=== PATIENT | male | born 1995 | race Caucasian/White ===

== ENCOUNTER 2016-08-20 00:59 | Inpatient (IN) | payer MEDICAID, OTHER ==
[~2016-08-20] VITALS: Ht 165.1 cm; Wt 81.4 kg
[2016-08-20] MEDS ORDERED: NS 1,000 ML IV ONE ×3 (01:45→06:00)
[2016-08-20] MEDS ORDERED: LORazepam 2 MG/ML VIAL (J2060) As Ordered ONE (02:10)
[2016-08-20] MEDS ORDERED: LORazepam 2 MG/ML VIAL (J2060) IM STA (02:19)
[2016-08-20] MEDS ORDERED: LORazepam 2 MG/ML VIAL (J2060) IV STA ×3 (02:19→03:51)
[2016-08-20] MEDS ORDERED: levETIRAcetam INJection 750 MG in D5W 100 ML IV ONE (02:30)
[2016-08-20 02:48] LABS: VENOUS BASE EXCESS -11.9 (-2.0-2.0); VENOUS O2 SATURATION 98.4 % (60.0-80.0); VENOUS PARTIAL PRESSURE CO2 32.2 mmHg (38.0-50.0); VENOUS PARTIAL PRESSURE O2 132.7 mmHg (30.0-50.0); VENOUS STANDARD HCO3 15.5 MEQ/L; VENOUS TOTAL CO2 14.9 MEQ/L (24.0-28.0)
[2016-08-20 02:58] LABS: BASO % 0.1 % (0.0-1.0); EOS % 0.3 % (0.0-3.0); LARGE UNSTAINED CELL # 0.1 K/mm3 (0.0-0.4); LARGE UNSTAINED CELL % 0.5 % (0.0-4.0); LYMPH # 0.8 K/mm3 (1.5-6.5); MEAN CORPUSCULAR HEMOGLOBIN 30.9 pg (27.0-33.0); MEAN CORPUSCULAR VOLUME 93.5 fl (80.0-96.0); MONO # 0.6 K/mm3 (0.0-0.8); MONO % 3.7 % (0.0-5.0); NEUTROPHILS # 13.9 K/mm3 (1.8-7.7); NEUTROPHILS % 90.5 % (36.0-66.0); PLATELET COUNT, AUTOMATED 250 k/mm3 (150-450); RED CELL DISTRIBUTION WIDTH 12.8 % (11.5-14.5); WHITE BLOOD COUNT 15.3 K/mm3 (4.0-10.0)
[2016-08-20 03:25] LABS: ABG BASE EXCESS -4.6 (-2.0-2.0); ABG HCO3 20.5 MEQ/L (22.0-26.0); ABG PARTIAL PRESSURE CO2 37.9 mmHg (35.0-45.0); ABG STANDARD HCO3 20.3 MEQ/L (22.0-26.0); ABG TOTAL CO2 21.6 MEQ/L (22.0-29.0)
[2016-08-20 03:26] LABS: OSMOLALITY SERUM 285 MOSM/KG (275-295)
[2016-08-20 03:28] LABS: ABG PARTIAL PRESSURE O2 45.5 mmHg (75.0-100.0)
[2016-08-20 03:30] LABS: ALBUMIN 4.3 GM/DL (3.2-5.2); ALBUMIN/GLOBULIN RATIO 1.23 (1.00-1.93); ALKALINE PHOSPHATASE 63 U/L (45-117); ALT/SGPT 21 U/L (12-78); ANION GAP 16 MEQ/L (8-16); AST/SGOT 28 U/L (15-37); BILIRUBIN,DIRECT 0.3 MG/DL (0.0-0.2); BILIRUBIN,TOTAL 1.2 MG/DL (0.2-1.0); BLOOD UREA NITROGEN 12 MG/DL (7-18); CALCIUM LEVEL 8.3 MG/DL (8.5-10.1); CARBON DIOXIDE LEVEL 19 MEQ/L (21-32); CHLORIDE LEVEL 103 MEQ/L (98-107); CREATININE FOR GFR 1.17 MG/DL (0.70-1.30); GLOMERULAR FILTRATION RATE > 60.0 (>60); GLUCOSE, FASTING 122 MG/DL (70-105); POTASSIUM SERUM 3.9 MEQ/L (3.5-5.1); SODIUM LEVEL 138 MEQ/L (136-145); TOTAL PROTEIN 7.8 GM/DL (6.4-8.2)
[2016-08-20] MEDS ORDERED: diphenhydrAMINE INJ 50MG/ML VIAL (J1200) IV STA (03:51)
[2016-08-20] MEDS ORDERED: diphenhydrAMINE INJ 50MG/ML VIAL (J1200) As Ordered ONE (03:53)
[2016-08-20] MEDS ORDERED: HALOPERIDOL 5 MG/ML VIAL (J1630) As Ordered ONE (03:53)
[2016-08-20 04:00] LABS: METHADONE URINE NEGATIVE (NEGATIVE)
[2016-08-20] MEDS ORDERED: HALOPERIDOL 5 MG/ML VIAL (J1630) IM ONE (04:00)
--- NOTE | 2016-08-20 04:20 | REPUSA ---
CLINICAL HISTORY: Altered mental status. TECHNIQUE: Multiple axial brain CT scan sections were obtained from base to vertex without contrast a dministration. COMMENTS: The study shows normal configuration of sella turcica. There are no intra or extra-axial collections. There is no mass effect or midline shift. There is no evidence of hematoma formation. No hydrocephal us is present. No abnormal calcifications are noted. No significant abnormalities are seen either in the posterior fossa or supratentorial compartment. The sinuses and mastoid air cells are patent. IMPRESSION: No evidence of acute intracranial pathology. Thank you for your kind referral of this patient.
[2016-08-20] MEDS ORDERED: NS 1,000 ML IV SCH (04:29)
[2016-08-20] MEDS ORDERED: KETAMINE HCL 200 MG/20 ML VIAL IV ONE (04:30)
[2016-08-20] MEDS ORDERED: PROPOFOL 200 MG/20 ML VIAL IV PRN (04:30)
[2016-08-20 05:29] LABS: CSF DILUENT LOT # 6165
[2016-08-20 05:32] LABS: GLUCOSE CSF 85 MG/DL (40-75)
[2016-08-20 05:40] LABS: RBC CSF AUTO 1 /mm3 (0-0); WBC CSF AUTO 3 /mm3 (0-10)
[2016-08-20 05:42] LABS: RBC CSF AUTO 0 /mm3 (0-0); WBC CSF AUTO 2 /mm3 (0-10)
[2016-08-20 05:44] LABS: APPEARANCE, CSF CLEAR (CLEAR); COLOR, CSF COLORLESS (COLORLESS); CSF DIFF IF INDICATED? NO (NO); CSF TUBE# CELL CNT TUBE 1; CSF TUBE# CELL CNT TUBE 4
[2016-08-20] MEDS ORDERED: LORazepam 2 MG/ML VIAL (J2060) IV PRN (07:00)
--- NOTE | 2016-08-20 07:32 | HPE ---
DATE OF ADMISSION: 08/20/2016 REASON FOR ADMISSION: Seizures. PRIMARY CARE PROVIDER: None. HISTORY OF PRESENT ILLNESS: The patient is a 20-year-old male with a history of drug abuse, presented to the emergency room after he had a seizure; it was witnessed by his ex-girlfriend. The patient is from [place]. He today called his ex-girlfriend, who is the mother of his child, stating he would like to spend more time with his child. She went to get him and during the car ride he had a seizure. He was postictal for a few minutes. She drove him into the emergency room. In the emergency department (ED), he had another witnessed seizure. Most of the history was obtained from the girlfriend and later on family that showed up. Per family, they stated the patient has a long history of drug use, mainly synthetic marijuana but has experimented with different types of drugs. He was in drug rehabilitation in the past a few years ago, has not been seen by any psychiatrist or psychologist. He has no epileptic seizure history. However, he did have seizures in the past due to a drug overdose, per his mom and grandpa. At this time, the patient is postictal, unable to give any history. PAST MEDICAL HISTORY: Per his mom, the patient only has a history of heart murmur. PAST SURGICAL HISTORY: Tonsillectomy, adenoidectomy. ALLERGIES TO MEDICATIONS: None. SOCIAL HISTORY: The patient smokes synthetic marijuana, may have experimented with other drugs including bath salts. He had three episodes of overdoses in the past. FAMILY HISTORY: Noncontributory. MEDICATIONS: No prescribed medications. REVIEW OF SYSTEMS: Unable to obtain at this time due to the patient's altered mentation. PHYSICAL FINDINGS: Vital Signs: On admission, temperature 96.3, pulse 92, respiratory rate 20, blood pressure is 171/93, pulse oximetry 97% on room air. HEENT: Pupils equal, round, reactive. Neck: Supple. No jugular venous distention (JVD). Lungs: Clear to auscultation bilaterally. Cardiac: A 2/6 murmur. Regular rate and rhythm. Extremities: No clubbing, cyanosis or edema. Abdomen: Soft, positive bowel sounds. Neurologic: Unable to obtain due to the patient's current mentation. LABORATORY FINDINGS. WBC 15.3, hemoglobin 16.1, hematocrit 48.8, platelet count 250. Sodium 138, potassium 3.9, chloride 103, BUN 12, creatinine 1.17, fasting glucose 122, lactic acid 9.4, CK was 494, troponin less than 0.02, TSH 2.04. Toxicology screen was positive for cannabinoids. Lumbar puncture (LP) was done in the emergency room which showed 1+ RBCs and 85 of glucose, [address] was also done in the emergency room, which was negative. ASSESSMENT AND PLAN: 1. Seizure disorder, likely secondary to drugs. The patient has a history of drug abuse in the past. We will order extended drug screen. We will keep the patient on seizure precautions, neurologic checks every 4 hours. The patient was loaded with Keppra in the emergency room. He also received two doses of Haldol 5 mg, four doses of Ativan 2 mg, Benadryl and a loading dose of Keppra. We will order an electroencephalogram (EEG), prolactin level. 2. Lactic acidosis, likely secondary to breakdown due to seizures. It will be repeated in 4 hours. 3. Elevated CK secondary to seizures. 4. History of drug abuse. Unknown if the patient has any history of suicidal ideation. 5. Deep vein thrombosis (DVT) prophylaxis. Will use Lovenox subcutaneously daily.
[2016-08-20] MEDS: NS 1,000 ML IV SCH ×3 (07:58→22:53)
[2016-08-20] MEDS: ENOXAPARIN 40 MG/0.4 ML SYRINGE (J1650) SC SCH (09:39)
[2016-08-20 10:00] VITALS: BP 113/59
[2016-08-20] MEDS ORDERED: ACETAMINOPHEN 650 MG SUPP PR ONE (11:15)
[2016-08-20 12:00] VITALS: BP 125/60
[2016-08-20 12:45] VITALS: BP 91/54
--- NOTE | 2016-08-20 12:47 | IPNPDOC ---
Date Seen The patient was seen on 08/20/16. Progress Note SUBJECTIVE: Mr. Thompson is a 20-year-old male was evaluated bedside this morning. He is currently in the emergency department holding area. His grandfather is present in the room upon evaluation. Patient is unresponsive secondary to sedation. Grandfather states that he raised patient from the age of 7-20 when patient stated that he wanted to be free. Obtained custody of patient secondary to patient's mother having history of drug abuse. Grandfather states that patient has had consistent problem with drugs. Furthermore, since the patient has history of seizures and that patient experienced seizures before being admitted to the hospital. Patient himself is unable to provide any history secondary to sedation. OBJECTIVE PHYSICAL EXAMINATION: VITAL SIGNS: Please see below. GENERAL: male laying in hospital bed upon evaluation, sedated, appears well-nourished and well-developed, no apparent distress HEENT: Atraumatic, normocephalic, short red quiñonez, limited oral evaluation appears pink and moist, pupils appear pinpoint, anicteric, without conjunctival erythema, abrasion noted along mandibular joint on the right, abrasion noted along the lateral portion of right eyelid CARDIOVASCULAR: Regular rate and rhythm, normal S1 and S2, no murmur, rub, click RESPIRATORY: Coarse breath sounds, clear to auscultation bilaterally, adequate inspiratory and excoriated with excursion, no wheeze, rhonchi, crackles ABDOMINAL: Soft, nontender, nondistended, bowel sounds appreciated EXTREMITIES: Without edema, multiple ecchymoses noted on upper and lower extremities, peripheral pulses appreciated bilaterally in upper and lower extremities, equal, symmetrical, +2/4 NEUROLOGICAL: Sedated PSYCHOLOGICAL: Sedated LABORATORY DATA: Please see below. MICROBIOLOGY: Please see below. IMAGING: Head CT without contrast IMPRESSION: No evidence of acute intracranial pathology. DVT prophylaxis ordered?: Lovenox 40 mg subcutaneous daily ASSESSMENT AND PLAN: Mr. Thompson is a 20-year-old male who presents with altered mental status secondary to polysubstance abuse with concomitant possible seizure disorder. PROBLEMS: 1. Altered mental status: Patient is currently sedated. Lumbar puncture was negative. Toxicology report was positive for cannabinoids. Head CT without contrast was negative. MRI of the brain without contrast is pending. Prolactin is pending. Possible etiologies include infection, structural component, metabolic. Evaluating infectious causes with blood culture, urinalysis, and lumbar puncture. Structural component evaluated with CT and MRI of the brain. Metabolic aggravated this toxicology screen. We'll also be obtaining an EEG. 2. Fever: Patient fever 100.8. Given Tylenol 650 mg suppository. Obtaining blood cultures and urinalysis. 3. Leukocytosis: WBC 15.3, neutrophil dominant. Question acute phase reactant from seizure versus infectious etiology. Blood cultures and urinalysis are pending. 4. Acute kidney injury: Patient's BUN and creatinine 12 and 1.17, respectively. Obtaining urinalysis. Urine osmolality was within normal range. Could be secondary to underlying dehydration. Receiving intravenous fluids 150 mLs per hour. 5. Elevated creatine phosphokinase: CPK was 949. CK-MB 6.2. Likely secondary to seizure, could be secondary to dehydration. 6. Lactic acidosis: Patient's initial lactic acid was 9.4. Likely secondary to seizure. Reflexive four hour lactic acid was 1. DISPOSITION: Tylenol for fever. Currently investigating reasons for leukocytosis and fever with blood cultures and urinalysis. Acute kidney injury likely secondary to dehydration. Elevated CPK likely related to some muscle injury secondary to polysubstance abuse and seizure. VS, I&O, 24H, Fishbone Vital Signs/I&O Vital Signs Date Time Temp Pulse Resp B/P (MAP) Pulse Ox O2 Delivery O2 Flow Rate FiO2 08/20/16 10:00 100.8 08/20/16 10:00 90 16 113/59 (77) 96 Room Air 08/20/16 04:46 2.0 I&O- Last 24 Hours up to 6 AM 08/20/16 06:00 Intake Total 1000 ml Balance 1000 ml Laboratory Data 24H LABS Laboratory Tests 2 08/20/16 02:40: Blood Gas Bicarbonate Standard 15.5, Venous Blood pH 7.252L, Venous Blood Partial Pressure CO2 32.2L, Venous Blood Partial Pressure O2 132.7H, Venous Blood Total Carbon Dioxide 14.9L, Venous Blood HCO3 13.9L, Venous Blood Oxygen Saturation 98.4H, Venous Blood Base Excess -11.9L, Lactic Acid Level 9.4*H 08/20/16 02:50: White Blood Count 15.3H, Red Blood Count 5.22, Hemoglobin 16.1, Hematocrit 48.8 , Mean Corpuscular Volume 93.5, Mean Corpuscular Hemoglobin 30.9, Mean Corpuscular Hemoglobin Concent 33.0, Red Cell Distribution Width 12.8, Platelet Count 250, Neutrophils (%) (Auto) 90.5H, Lymphocytes (%) (Auto) 5.0L, Monocytes (%) (Auto) 3.7, Eosinophils (%) (Auto) 0.3, Basophils (%) (Auto) 0.1, Neutrophils # (Auto) 13.9H, Lymphocytes # (Auto) 0.8L, Monocytes # (Auto) 0.6, Eosinophils # (Auto) 0.0, Basophils # (Auto) 0.0, Large Unclassified Cells % 0.5 , Large Unclassified Cells # 0.1, Anion Gap 16, Glomerular Filtration Rate > 60.0, Osmolality 285, Calcium Level 8.3L, Aspartate Amino Transf (AST/SGOT) 28, Alanine Aminotransferase (ALT/SGPT) 21, Alkaline Phosphatase 63, Total Bilirubin 1.2H, Direct Bilirubin 0.3H, Total Creatine Kinase 494H, Creatine Kinase MB 5.0H, Creatine Kinase MB Relative Index 1.01, Troponin I < 0.02, Total Protein 7.8, Albumin 4.3, Albumin/Globulin Ratio 1.23, Thyroid Stimulating Hormone (TSH) 2.040, Ethyl Alcohol Level < 0.003 08/20/16 03:09: Bedside Glucose (Misc Panel) 127H 08/20/16 03:19: Blood Gas Bicarbonate Standard 20.3L, Arterial Blood pH 7.350, Arterial Blood Partial Pressure CO2 37.9, Arterial Blood Partial Pressure O2 45.5*L, Arterial Blood Total CO2 21.6L, Arterial Blood HCO3 20.5L, Arterial Blood Base Excess - 4.6L, Arterial Blood Oxygen Saturation 80.4L 08/20/16 03:32: Urine Amphetamines Screen NEGATIVE, Urine Benzodiazepines Screen NEGATIVE, Urine Opiates Screen NEGATIVE, Urine Methadone Screen NEGATIVE, Urine Barbiturates Screen NEGATIVE, Urine Phencyclidine Screen NEGATIVE, Urine Cocaine Metabolite Screen NEGATIVE, Urine Cannabinoids Screen POSITIVEH 08/20/16 05:11: CSF Appearance CLEAR, CSF Color COLORLESS, CSF WBC 2, CSF RBC 0, CSF Glucose ( Tube 1) TUBE 1, CSF Total Protein (Tube 1) TUBE 1, CSF Cell Count Tube # TUBE 4 , CSF Glucose 85H, CSF Total Protein 32.9 08/20/16 07:23: Lactic Acid Followup at 4 Hours 1.0, Total Creatine Kinase 949#H, Creatine Kinase MB 6.2H, Creatine Kinase MB Relative Index 0.65, Troponin I 0.09# 08/20/16 11:59: CBC/BMP Laboratory Tests 08/20/16 02:50 Red Blood Count 5.22, Mean Corpuscular Volume 93.5, Mean Corpuscular Hemoglobin 30.9, Mean Corpuscular Hemoglobin Concent 33.0, Red Cell Distribution Width 12.8 , Neutrophils (%) (Auto) 90.5 H, Lymphocytes (%) (Auto) 5.0 L, Monocytes (%) ( Auto) 3.7, Eosinophils (%) (Auto) 0.3, Basophils (%) (Auto) 0.1, Neutrophils # ( Auto) 13.9 H, Lymphocytes # (Auto) 0.8 L, Monocytes # (Auto) 0.6, Eosinophils # (Auto) 0.0, Basophils # (Auto) 0.0 Microbiology Microbiology 08/20/16 Blood Culture, Received Pending 08/20/16 Blood Culture, Received Pending 08/20/16 Gram Stain - Final, Resulted 08/20/16 CSF Culture, Resulted Pending CARRIE BERMAN August 20, 2016 12:47
[2016-08-20] MEDS: levETIRAcetam INJection 1,000 MG in D5W 100 ML IV SCH (15:43)
[2016-08-20 16:00] VITALS: BP 141/63
[2016-08-20 20:00] VITALS: BP 125/68
[2016-08-20 23:49] VITALS: BP 137/67
[2016-08-21 04:00] VITALS: BP 145/65
[2016-08-21] MEDS: levETIRAcetam INJection 1,000 MG in D5W 100 ML IV SCH ×2 (04:24→16:00)
[2016-08-21] MEDS: NS 1,000 ML IV SCH ×2 (04:24→11:29)
[2016-08-21 05:53] LABS: MEAN CORPUSCULAR HEMOGLOBIN 31.2 pg (27.0-33.0); MEAN CORPUSCULAR HGB CONC 34.4 g/dl (32.0-36.5); MEAN CORPUSCULAR VOLUME 90.7 fl (80.0-96.0); RED CELL DISTRIBUTION WIDTH 12.8 % (11.5-14.5)
[2016-08-21 06:37] LABS: ALBUMIN 3.3 GM/DL (3.2-5.2); ALBUMIN/GLOBULIN RATIO 1.32 (1.00-1.93); ALKALINE PHOSPHATASE 55 U/L (45-117); ALT/SGPT 27 U/L (12-78); ANION GAP 13 MEQ/L (8-16); AST/SGOT 74 U/L (15-37); BILIRUBIN,TOTAL 2.6 MG/DL (0.2-1.0); BLOOD UREA NITROGEN 10 MG/DL (7-18); CALCIUM LEVEL 7.5 MG/DL (8.5-10.1); CARBON DIOXIDE LEVEL 19 MEQ/L (21-32); CHLORIDE LEVEL 108 MEQ/L (98-107); CREATININE FOR GFR 0.81 MG/DL (0.70-1.30); GLOMERULAR FILTRATION RATE > 60.0 (>60); GLUCOSE, FASTING 71 MG/DL (70-105); POTASSIUM SERUM 3.5 MEQ/L (3.5-5.1); SODIUM LEVEL 140 MEQ/L (136-145); TOTAL PROTEIN 5.8 GM/DL (6.4-8.2)
[2016-08-21 08:00] VITALS: BP 107/55
[2016-08-21] MEDS ORDERED: ACETAMINOPHEN TAB 650MG DOSE (2X325MG) PO PRN (08:00)
[2016-08-21] MEDS: ENOXAPARIN 40 MG/0.4 ML SYRINGE (J1650) SC SCH (08:03)
[2016-08-21 12:00] VITALS: BP 133/79
--- NOTE | 2016-08-21 14:01 | IPNPDOC ---
Subjective Date Seen The patient was seen on 08/21/16. Subjective Chief Complaint/HPI The patient is a 20-year-old male admitted with a reason for visit of Seizure. General: Denies: Chills, Night Sweats Constitutional: Denies: Chills, Fever Eyes: Denies: Pain, Vision change ENT: Denies: Head Aches, Ear Pain Skin: Denies: Rash, Lesions Pulmonary: Denies: Dyspnea, Cough Cardiovascular: Denies: Chest Pain, Palpitations Gastrointestinal: Denies: Nausea, Vomiting Genitourinary: Denies: Dysuria, Frequency Hematologic: Denies: Bruising, Bleeding Excessively Musculoskeletal: Denies: Neck Pain, Back Pain Objective Physical Examination General Exam: Positive: Alert, Cooperative, No Acute Distress ENT Exam: Positive: Atraumatic, Mucous membr. moist/pink Neck Exam: Negative: JVD Chest Exam: Positive: Clear to auscultation, Normal air movement Heart Exam: Positive: Rate Normal, Normal S1, Normal S2 Telemetry: Positive: Sinus Abdomen Exam: Positive: Soft, Negative: Tenderness Extremity Exam: Negative: Tenderness, Swelling Neuro Exam: Positive: Strength at 5/5 X4 ext, Cranial Nerves 3-12 NL Psych Exam: Positive: Oriented x 3 Assessment /Plan Plan/VTE VTE Prophylaxis Ordered?: Yes Plan Episode of seizure(s) CT scan of the head with no acute findings MRI of the brain pending Lumbar puncture done in the ER with no suggestion of underlying infectious etiology Blood cultures unrevealing Patient states that he has a history of 1 episode of seizure in the past about 2 years ago, and this happened after he took a "Tess" recreational drug At this time, the patient denies taking any illicit drugs prior to his event Urine toxicology screen positive for cannabinoids EEG pending Continue on Keppra 1000 mg twice a day Neurology consulted Rhabdomyolysis CPK noted to be ~4K this AM Likely 2/2 Seizure event IVF Hydration Will continue to monitor CPK Lactic acidosis likely 2/2 Above, resolved DVT Prophylaxis-Lovenox Dispo: Will follow up on neuro imaging, EEG studies, and Neuro input. Anticipate D/C in 24-48 hrs. Update 5:45pm--called by the bedside nurse as the patient stated that he wanted to leave the hospital AGAINST MEDICAL ADVICE. I did go and speak to the patient about this with his mom and grandfather also at the bedside. I explained the risks associated with signing out AGAINST MEDICAL ADVICE which include worsening rhabdomyolysis, kidney failure, recurrent seizures, stroke, and possible . I have explained to him that there is still an MRI/MRA brain imaging pending as well as an EEG. The patient's CPK levels have been trending upwards and I do have concern about possible kidney injury, which may lead to renal failure. The patient is awake, alert, oriented, and knowledgeable about these risks and he has verbalized understanding of the same. After an extensive conversation in attempt to persuade the patient to stay by myself and his mother and grandfather at the bedside the patient states that he would still like to go home at this time. I've advised that the patient not operate any heavy machinery, drive a car, climbing a ladder, or go swimming given his recent episode of seizure. I've also advised that the patient follow-up with his primary care doctor within the next 24-48 hours for further evaluation and management, and to return to the ER if his symptoms were to recur. VS, I&O, 24H, [facility] Vital Signs/I&O Vital Signs Date Time Temp Pulse Resp B/P (MAP) Pulse Ox O2 Delivery O2 Flow Rate FiO2 08/21/16 08:00 98.8 70 18 107/55 (72) 98 Room Air 08/20/16 04:46 2.0 I&O- Last 24 Hours up to 6 AM 08/21/16 05:59 Intake Total 3220 ml Output Total 1850 ml Balance 1370 ml Laboratory Data 24H LABS Laboratory Tests 2 08/20/16 15:05: Total Creatine Kinase 2857#H, Creatine Kinase MB 5.8H, Creatine Kinase MB Relative Index 0.20, Troponin I 0.03# 08/20/16 22:54: Total Creatine Kinase 3652H, Creatine Kinase MB 4.2H, Creatine Kinase MB Relative Index 0.11, Troponin I 0.03 08/21/16 05:20: Total Creatine Kinase 4049H, Anion Gap 13, Glomerular Filtration Rate > 60.0, Blood Urea Nitrogen 10, Creatinine 0.81, Sodium Level 140, Potassium Level 3.5, Chloride Level 108H, Carbon Dioxide Level 19L, Calcium Level 7.5L, Aspartate Amino Transf (AST/SGOT) 74H, Alanine Aminotransferase (ALT/SGPT) 27, Alkaline Phosphatase 55, Total Bilirubin 2.6#H, Total Protein 5.8#L, Albumin 3.3#, Magnesium Level 2.0, Albumin/Globulin Ratio 1.32 CBC/BMP Laboratory Tests 08/21/16 05:20 Red Blood Count 4.24 L, Mean Corpuscular Volume 90.7, Mean Corpuscular Hemoglobin 31.2, Mean Corpuscular Hemoglobin Concent 34.4, Red Cell Distribution Width 12.8, Calcium Level 7.5 L, Aspartate Amino Transf (AST/SGOT) 74 H, Alanine Aminotransferase (ALT/SGPT) 27, Total Creatine Kinase 4049 H, Alkaline Phosphatase 55, Total Bilirubin 2.6 #H, Total Protein 5.8 #L, Albumin 3.3 # Microbiology Microbiology 08/20/16 Blood Culture - Preliminary, Resulted No growth after 24 hours . All specim... 08/20/16 Blood Culture - Preliminary, Resulted No growth after 24 hours . All specim... 08/20/16 Gram Stain - Final, Resulted 08/20/16 CSF Culture, Resulted Pending DYLAN SPARKS MD August 21, 2016 14:01
--- NOTE | 2016-08-21 14:40 | ECGEPIP ---
Stationary ECG Study [facility] - ED Test Date: 2016-08-20 Pat Name: JESSICA SIMS Department: Room: [place] [address] Gender: M Car [employer]: : 1995 Requested By: VASILE Henderson Order Number: [id number] Reading MD: Jacklyn Cummings Measurements Intervals [place] Rate: 75 P: 77 MN: 129 QRS: 72 QRSD: 100 T: 35 QT: 378 QTc: 422 Interpretive Statements SINUS RHYTHM WITH MARKED SINUS ARRHYTHMIA NO PRIOR FOR COMPARISON Electronically Signed On 08-21-2016 14:40:31 EDT by Jacklyn Cummings
[2016-08-21 16:00] VITALS: BP 135/84
--- NOTE | 2016-08-21 18:30 | REPUSA ---
HISTORY: HX SEIZURE, R/O SINUS VENOUS THROMBUS TECHNIQUE: Magnetic resonance venography of the [place] of [place] was performed 2-D axial [id number] images with images retrospectively targeted and reformatted according to standard protocol. Source images were reviewed. The study was performed pre and post IV contrast. There is some motion which s omewhat limits evaluation. FINDINGS: There is normal anatomy. The superior sagittal sinus, torcula and transverse and sigmoid sinuses are patent, as are the jugula r veins. The right transverse sinus is dominant. The septal veins, thalamostriate veins, internal cerebral veins, basal veins of Giuliana, and straig ht sinus are patent. The cortical veins are patent. IMPRESSION: Normal MRV of the intracranial circulation. No evidence for thrombosis-occlusion. The right transvers e sinus is dominant. Thank you for your kind referral of this patient.
[2016-08-21] MEDS ORDERED: KEPP1000 PO (18:32)
--- NOTE | 2016-08-21 19:05 | DS.PDOC ---
Discharge Summary General Date of Admission August 20, 2016 at 06:22 Date of Discharge 08/21/2016 Specialist/Consultants Involve: ASIA VEGA MD Discharge Summary PROCEDURES PERFORMED DURING STAY: Lumbar puncture ADMITTING DIAGNOSES: 1. . Episode of seizure 2. . Rhabdomyolysis 3. . Leukocytosis DISCHARGE DIAGNOSES: 1. . Episode of seizure 2. . Rhabdomyolysis 3. . Leukocytosis COMPLICATIONS/CHIEF COMPLAINT: Seizure. HISTORY OF PRESENT ILLNESS: . 20-year-old male with past medical history of polysubstance abuse and an episode of a seizure following use of illicit drugs in the past presented to the ER on 08/20/16 after he was noted to have an episode of seizure while he was a passenger in a car. According to the patient's ex-girlfriend who was in the car, the patient was in the car and suddenly started having jerking, tonic- clonic movements, with associated grunting. This lasted approximately 5 minutes , and after awakening the patient was noted to be groggy. Of note, the patient' s family stated that the patient has had a similar episode of seizures in the past in February 2015 at which time he was taking an illicit drug called a "Tess." The patient denied taking any illicit drugs prior to his event at this time. However, his urine tox screen was positive for cannabinoids. In the ER, a lumbar puncture was performed and the studies did not show any underlying infectious etiology. The patient was hospitalized here, and was noted to have a seizure-like episode in the ER as well, at which time he was given Ativan, Haldol, Benadryl, ketamine , and loaded with Keppra. A CT scan of the head showed no acute findings. An MRI , MRA brain, and EEG studies were ordered. The patient was monitored on telemetry and had no significant events. A neurology consult was also sought. In addition, the patient was noted to have an elevated CPK level of over 4000 and trending upward which is likely attributable to his seizure event. He has been receiving IV fluid hydration for this. Unfortunately, 24 hours after his admission the patient has decided to sign himself out AGAINST MEDICAL ADVICE. I' ve explained the risks and benefits associated with his decision which include possible renal failure, and and he has verbalized understanding of the same. I've advised the patient to abstain from any driving, operating heavy machinery, swimming, or climbing ladders. DISCHARGE MEDICATIONS: Please see below. ALLERGIES: Please see below. PHYSICAL EXAMINATION ON DISCHARGE: VITAL SIGNS: Please see below. General Exam: Positive: Alert, Cooperative, No Acute Distress ENT Exam: Positive: Atraumatic, Mucous membr. moist/pink Neck Exam: Negative: JVD Chest Exam: Positive: Clear to auscultation, Normal air movement Heart Exam: Positive: Rate Normal, Normal S1, Normal S2 Telemetry: Positive: Sinus Abdomen Exam: Positive: Soft, Negative: Tenderness Extremity Exam: Negative: Tenderness, Swelling Neuro Exam: Positive: Strength at 5/5 X4 ext, Cranial Nerves 3-12 NL Psych Exam: Positive: Oriented x 3 LABORATORY DATA: Please see below. IMAGING: CLINICAL HISTORY: Altered mental status. TECHNIQUE: Multiple axial brain CT scan sections were obtained from base to vertex without contrast administration. COMMENTS: The study shows normal configuration of sella turcica. There are no intra or extra-axial collections. There is no mass effect or midline shift. There is no evidence of hematoma formation. No hydrocephalus is present. No abnormal calcifications are noted. No significant abnormalities are seen either in the posterior fossa or supratentorial compartment. The sinuses and mastoid air cells are patent. IMPRESSION: No evidence of acute intracranial pathology. Thank you for your kind referral of this patient. HISTORY: HX SEIZURE, R/O SINUS VENOUS THROMBUS TECHNIQUE: Magnetic resonance venography of the [place] was performed 2 -D axial [id number] images with images retrospectively targeted and reformatted according to standard protocol. Source images were reviewed. The study was performed pre and post IV contrast. There is some motion which somewhat limits evaluation. FINDINGS: There is normal anatomy. The superior sagittal sinus, torcula and transverse and sigmoid sinuses are patent, as are the jugular veins. The right transverse sinus is dominant. The septal veins, thalamostriate veins, internal cerebral veins, basal veins of Giuliana, and straight sinus are patent. The cortical veins are patent. IMPRESSION: Normal MRV of the intracranial circulation. No evidence for thrombosis- occlusion. The right transverse sinus is dominant. PROGNOSIS: Guarded given recent episode of seizures, rhabdomyolysis ACTIVITY: Avoid operating any heavy machinery, driving, swimming, or climbing ladders DIET: . Regular diet DISCHARGE PLAN: DISPOSITION: Against Medical Advice. DISCHARGE INSTRUCTIONS: 1. . Follow-up with a primary care physician within 24-48 hours 2. . Return to the ER if episodes of seizures occur DISCHARGE CONDITION: Guarded given recent episode of seizures, rhabdomyolysis TIME SPENT ON DISCHARGE: Greater than 30 minutes. Vital Signs/I&Os Vital Signs Date Time Temp Pulse Resp B/P (MAP) Pulse Ox O2 Delivery O2 Flow Rate FiO2 08/21/16 16:00 98.6 67 18 135/84 (101) 98 Room Air 08/20/16 04:46 2.0 I&O- Last 24 Hours up to 6 AM 08/21/16 06:00 Intake Total 3370 ml Output Total 1850 ml Balance 1520 ml Laboratory Data Labs 24H Laboratory Tests 2 08/20/16 22:54: Total Creatine Kinase 3652H, Creatine Kinase MB 4.2H, Creatine Kinase MB Relative Index 0.11, Troponin I 0.03 08/21/16 05:20: Total Creatine Kinase 4049H, Anion Gap 13, Glomerular Filtration Rate > 60.0, Blood Urea Nitrogen 10, Creatinine 0.81, Sodium Level 140, Potassium Level 3.5, Chloride Level 108H, Carbon Dioxide Level 19L, Calcium Level 7.5L, Aspartate Amino Transf (AST/SGOT) 74H, Alanine Aminotransferase (ALT/SGPT) 27, Alkaline Phosphatase 55, Total Bilirubin 2.6#H, Total Protein 5.8#L, Albumin 3.3#, Magnesium Level 2.0, Albumin/Globulin Ratio 1.32 08/21/16 14:04: Total Creatine Kinase 4420H CBC/BMP Laboratory Tests 08/21/16 05:20 Red Blood Count 4.24 L, Mean Corpuscular Volume 90.7, Mean Corpuscular Hemoglobin 31.2, Mean Corpuscular Hemoglobin Concent 34.4, Red Cell Distribution Width 12.8, Calcium Level 7.5 L, Aspartate Amino Transf (AST/SGOT) 74 H, Alanine Aminotransferase (ALT/SGPT) 27, Total Creatine Kinase 4049 H, Alkaline Phosphatase 55, Total Bilirubin 2.6 #H, Total Protein 5.8 #L, Albumin 3.3 # Microbiology Microbiology 08/20/16 Blood Culture - Preliminary, Resulted No growth after 24 hours . All specim... 08/20/16 Blood Culture - Preliminary, Resulted No growth after 24 hours . All specim... 08/20/16 Gram Stain - Final, Resulted 08/20/16 CSF Culture, Resulted Pending Discharge Medications Scheduled Levetiracetam (Keppra) 1,000 Mg Tab, 1,000 MG PO BID Allergies Coded Allergies: [place] (Verified Allergy, Unknown, 08/20/16) DYLAN SPARKS MD August 21, 2016 19:05
--- NOTE | 2016-08-22 09:36 | CR ---
DATE OF CONSULTATION: 08/21/2016 REASON FOR CONSULTATION: Seizure. HISTORY OF PRESENTING ILLNESS: Scot Thompson is a 20-year-old male with past medical history significant for drug abuse with synthetic marijuana last using 4 to 5 days before his admission. The patient had a generalized tonicoclonic seizure with postictal phase on the day of admission while in his girlfriend's car. He had a second seizure in the emergency department. He had been given Keppra at the time of that which was unremarkable and a head CT which was unremarkable and a head CT which was unremarkable based on report. Upon independent review there was an abnormality in the right transverse sinus which needed further clarification to rule out any sinus venous thrombosis. The patient subsequently underwent an MRI of the brain. We requested Dr. Alok Beach review the MRI of the stat study and it was documented that there was no acute intracranial abnormality. Sinus abnormality was noted to be artifacts. The patient has remained seizure free during the hospitalization. He has been counseled regarding cutting down use of marijuana and possibly discontinuing it. He has been counseled to discontinue synthetic marijuana. He states that both of these prior to the admission when he tried synthetic marijuana he suddenly developed a tremor in his upper extremities. The patient had a history of having a generalized clonicotonic seizure many years ago also in the setting of drug abuse. PAST MEDICAL HISTORY: Polysubstance abuse. PAST SURGICAL HISTORY: Tonsillectomy, adenoidectomy. FAMILY HISTORY: Noncontributory. SOCIAL HISTORY: The patient uses synthetic marijuana and regular marijuana. He has tried bath salts. The patient has had an episode of overdose in the past. REVIEW OF SYSTEMS: 14-point review of systems was negative except as per HPI. PRESENT MEDICATIONS: - lorazepam 1000 mg by mouth twice a day - Ativan 2 mg as needed onset seizure lasting greater than 3 minutes PHYSICAL EXAMINATION: Blood pressure 133/79, pulse rate 63, respiratory rate is 18, temperature is 98.9 degree Fahrenheit. Oxygenation 96% on room air. Current height 5 feet 8 inches, current weight is 81.4 kg. The patient is alert and oriented to person, place, and time. Speech, language, comprehension, and repetition are intact. Pupils are 3 mm, round, reactive to light. There is no nystagmus. Sensation V1, V2, V3 is intact to light touch. No facial asymmetry on activation. Palate elevates symmetrically. Tongue is midline. No weakness in sternocleidomastoids bilaterally. No pronator drift. Strength is 5/5 including bilateral deltoids, biceps, triceps, handgrip, iliopsoas, quadriceps, anterior tibialis. Deep tendon reflexes are 2+ throughout. Babinski signs are absent. Romberg testing deferred. Coordination normal. [id number] without any signs of ataxia or dysmetria. Sensory is intact to light touch throughout. ASSESSMENT: 1. Two episodes of generalized tonicoclonic seizures occurring within 1 day in the setting of marijuana use and use of synthetic marijuana a few days prior to admission. PLAN: 1. Obtain MRI brain. Followup reports for MRI brain with and without contrast, MRI angiogram PET without contrast, MR venogram PET with contrast. 2. Obtain EEG. 3. Continue Keppra 1000 mg by mouth twice a day. Patient advised no driving or operating any heavy machinery, climbing ladders, working on heights, etc., for the next 6 months. History obtained from both the patient and the patient's son's mother. Patient can follow in the neurology clinic as an outpatient after discharge.
--- NOTE | 2016-08-22 15:31 | REP ---
REASON: Pyrexia. COMPARISON: None. FINDINGS: The technique utilized in obtaining the radiograph has magnified the cardiac silhouette and accentuated the interstitial markings. The superior mediastinal structures are midline. The cardiac silhouette is unremarkable in size, shape, and position. The diaphragmatic surfaces of the lungs are regular, and the costophrenic angles are clear. The pulmonary osborne are clear. The imaged osseous structures are intact. IMPRESSION: There is no acute cardiopulmonary disease. Signed by Alok Beach DO 08/22/2016 05:12 P
--- NOTE | 2016-08-22 15:57 | REPUSA ---
CLINICAL HISTORY: HISTORY: HX SEIZURE, R/O SINUS VENOUS THROMBUS TECHNIQUE: MRI of the brain was performed without and with administration of intravenous contrast mat erial. T1 spine echo, T2 fast spin echo and FLAIR sequences were obtained in sagittal, axial and ace nal planes. FINDINGS: The sella and parasellar regions are unremarkable in appearance. The corpus callosum and cerebellar t onsils are of normal configuration and position. There are no intra or extra-axial collections. There is no mass effect or midline shift. There is no evidence of hematoma formation. There is no hydrocep halus. The brain stem shows no mass effects, infarcts or hemorrhage. There are no cerebellopontine tumors. T he acoustic nerves are symmetrical. No cerebellar intra-axial pathology delineated. The fourth ventri dannie and aqueduct are normal. No abnormalities of the optic nerves are identified. No dural or subdura l masses or collections are detected. There is evidence for generalized symmetrical dilatation of the ventricles and cortical sulci consist ent with parenchymal atrophy. There are bilateral periventricular and subcortical T2 and FLAIR hyperintensities compatible with chr onic white matter ischemic disease. The visualized arterial structures demonstrate normal appearing flow voids. The VII and VIII nerve bu ndles are visualized and are unremarkable in appearance. Mild mucosal thickening is seen involvingall sinuses compatible with chronic pansinusitis. Post contrast T1 axial and coronal images showed no abnormal enhancement in the brain, meninges or si nuses. IMPRESSION: 1. Chronic pansinusitis. 2. No evidence of acute intracranial pathology. Thank you for your kind referral of this patient.
== END 2016-08-21 18:28 | disposition left against medical advice (07) | DRG 53 ==
LOC: M ED 01:55 → M ED INP 06:22 → M PCU 12:38
PROVIDERS: ADMIT Internal Medicine; ATTEND Internal Medicine
PROC: 009U3ZX Drainage of Spinal Canal, Percutaneous Approach, Diagnostic (ICD-10-PCS; principal; 2016-08-20)
DX: G40.509 Epileptic seizures related to external causes, not intractable, without status epilepticus (principal); N17.9 Acute kidney failure, unspecified; E87.2 Acidosis; M62.82 Rhabdomyolysis; F19.21 Other psychoactive substance dependence, in remission; D72.829 Elevated white blood cell count, unspecified; Z91.018 Allergy to other foods; Z79.899 Other long term (current) drug therapy; Z81.3 Family history of other psychoactive substance abuse and dependence; T40.7X5A Adverse effect of cannabis (derivatives), initial encounter

== ENCOUNTER 2017-01-29 13:20 | Inpatient (IN) | payer OTHER ==
[~2017-01-29] VITALS: Ht 177.8 cm; Wt 71.1 kg
[~2017-01-29 13:20] MED LIST: KEPP10002 PO
[2017-01-29] MEDS ORDERED: NS 1,000 ML IV ONE (13:45)
[2017-01-29 13:49] LABS: BASO # 0.1 10^3/uL (0.0-0.2); BASO % 0.5 % (0.0-1.0); EOS % 0.2 % (0.0-3.0); IMMATURE GRANULOCYTE % 0.8 % (0-0); LYMPH # 1.6 10^3/uL (1.5-6.5); LYMPH % 12.7 % (24.0-44.0); MEAN CORPUSCULAR HEMOGLOBIN 30.5 pg (27.0-33.0); MEAN CORPUSCULAR HGB CONC 33.7 g/dl (32.0-36.5); MEAN CORPUSCULAR VOLUME 90.5 fl (80.0-96.0); MONO # 0.5 10^3/uL (0.0-0.8); MONO % 3.7 % (0.0-5.0); NEUTROPHILS # 10.5 10^3/uL (1.8-7.7); NEUTROPHILS % 82.1 % (36.0-66.0); PLATELET COUNT, AUTOMATED 244 10^3/uL (150-450); WHITE BLOOD COUNT 12.8 10^3/uL (4.0-10.0)
[2017-01-29 14:03] LABS: VENOUS BASE EXCESS -13.2 (-2.0-2.0); VENOUS O2 SATURATION 95.8 % (60.0-80.0); VENOUS PARTIAL PRESSURE CO2 32.7 mmHg (38.0-50.0); VENOUS PARTIAL PRESSURE O2 85.4 mmHg (30.0-50.0); VENOUS STANDARD HCO3 14.6 MEQ/L; VENOUS TOTAL CO2 14.1 MEQ/L (24.0-28.0)
[2017-01-29 14:12] LABS: ALBUMIN 4.4 GM/DL (3.2-5.2); ALBUMIN/GLOBULIN RATIO 1.22 (1.00-1.93); ALKALINE PHOSPHATASE 79 U/L (45-117); ALT/SGPT 18 U/L (12-78); ANION GAP 19 MEQ/L (8-16); AST/SGOT 11 U/L (15-37); BILIRUBIN,DIRECT 0.2 MG/DL (0.0-0.2); BILIRUBIN,TOTAL 0.7 MG/DL (0.2-1.0); BLOOD UREA NITROGEN 11 MG/DL (7-18); CALCIUM LEVEL 9.1 MG/DL (8.5-10.1); CARBON DIOXIDE LEVEL 15 MEQ/L (21-32); CHLORIDE LEVEL 106 MEQ/L (98-107); CREATININE FOR GFR 1.43 MG/DL (0.70-1.30); GLOMERULAR FILTRATION RATE > 60.0 (>60); GLUCOSE, FASTING 158 MG/DL (70-105); POTASSIUM SERUM 3.8 MEQ/L (3.5-5.1); SODIUM LEVEL 140 MEQ/L (136-145)
[2017-01-29] MEDS ORDERED: ONDANSETRON 4MG/2ML VIAL (J2405) IV ONE (14:15)
--- NOTE | 2017-01-29 14:20 | REP ---
Head CT without contrast: History: Altered level of consciousness. Comparison study: August 20, 2016. CT findings: Bone window settings demonstrate an intact bony calvarium. There is no evidence of skull fracture or incidental bony calvarial lesion. The visualized paranasal sinuses appear clear. No intraorbital abnormality is seen. On soft tissue window setting images; the lateral, third, and fourth ventricles are normal in size and position. Castorena-white differentiation pattern is normal above and below the tentorium. There are is no evidence of intracranial hemorrhage. No mass, edema, infarction, or midline shift is seen. No extra-axial fluid collection is appreciated. Impression: Negative noncontrast head CT. Signed by Shin Lloyd MD 01/29/2017 02:12 P
[2017-01-29 15:33] LABS: ABG BASE EXCESS -3.5 (-2.0-2.0); ABG HCO3 18.8 MEQ/L (22.0-26.0); ABG PARTIAL PRESSURE O2 129.6 mmHg (75.0-100.0); ABG STANDARD HCO3 21.6 MEQ/L (22.0-26.0); ABG TOTAL CO2 19.7 MEQ/L (22.0-29.0); ABG pH (ARTERIAL) 7.445 UNITS (7.350-7.450)
[2017-01-29 15:43] LABS: METHADONE URINE NEGATIVE (NEGATIVE)
[2017-01-29] MEDS ORDERED: LORazepam 2 MG/ML VIAL (J2060) As Ordered ONE (15:45)
[2017-01-29] MEDS ORDERED: LORazepam 2 MG/ML VIAL (J2060) IM STA (15:45)
[2017-01-29] MEDS ORDERED: levETIRAcetam INJection 1,000 MG in D5W 100 ML IV ONE (15:45)
[2017-01-29] MEDS: NS 1,000 ML IV SCH (16:25)
[2017-01-29] MEDS ORDERED: ACETAMINOPHEN TAB 650MG DOSE (2X325MG) PO PRN (16:30)
[2017-01-29] MEDS ORDERED: LORazepam 2 MG/ML VIAL (J2060) IV PRN (16:30)
--- NOTE | 2017-01-29 16:46 | HPEPDOC ---
General Date of Admission Jan 29, 2017 at 16:23 Chief Complaint The patient is a 21-year-old male Presented to the ER after he was found unresponsive in his car. History of Present Illness Patient is a 21 year old male with a PMHx of Seizure disorder and Polysubstance abuse who presented to the ER after he was found to be unresponsive in his car. Patient was noted to have a seizure episode while he was in the ER. He received Ativan 2mg IV after the seizure event because he was combative in his post-ictal state. Patient is currently unable to provide any details to his history and information has been ascertained from the medical record. Home Medications No Active Prescriptions or Reported Meds Allergies Coded Allergies: [place] (Verified Allergy, Unknown, 08/20/16) Past Medical History Medical History Seizure disorder and Polysubstance abuse Surgical History As per medical record; Tonsillectomy and adenoidectomy Family History - Unable to be obtained Social History - Unable to obtain directly; prior records indicate use of Synthetic marijuana and bath salts Review of Symptoms Other systems Unable to be obtained Vital Signs - Vitals: BP 165/86, HR 101, RR 20, Sat 98%RA, Temp 96.5F - General: Lying in bed, No acute distress, Speaking in full sentences, AAOx3 - HEENT: NC, AT, PERRLA - CVS: Regular rhythm, Tachycardic, +S1S2 - Lungs: Fair air entry bilaterally, Clear to auscultation, No appreciable wheezing / rales / rhonchi - Abdomen: Soft, Non-distended, Non-tender - Extremities: No lower extremity edema, No calf tenderness - Neuro: Moving all four extremities - Skin: No visible rashes Laboratory Data Labs 24H Laboratory Tests 2 01/29/17 13:15: 01/29/17 13:30: Bedside Glucose (Misc Panel) 165H 01/29/17 13:35: Immature Granulocyte % (Auto) 0.8H, White Blood Count 12.8H, Red Blood Count 5.45, Hemoglobin 16.6, Hematocrit 49.3, Mean Corpuscular Volume 90.5, Mean Corpuscular Hemoglobin 30.5, Mean Corpuscular Hemoglobin Concent 33.7, Red Cell Distribution Width 13.0, Platelet Count 244, Neutrophils (%) (Auto) 82.1H, Lymphocytes (%) (Auto) 12.7L, Monocytes (%) (Auto) 3.7, Eosinophils (%) (Auto) 0.2, Basophils (%) (Auto) 0.5, Neutrophils # (Auto) 10.5H, Lymphocytes # (Auto) 1.6, Monocytes # (Auto) 0.5, Eosinophils # (Auto) 0.0, Basophils # (Auto) 0.1, Immature Granulocyte # (Auto) 0.1H, Nucleated Red Blood Cells % (auto) 0.0, Blood Gas Bicarbonate Standard 14.6, Venous Blood pH 7.222L, Venous Blood Partial Pressure CO2 32.7L, Venous Blood Partial Pressure O2 85.4H, Venous Blood Total Carbon Dioxide 14.1L, Venous Blood HCO3 13.1L, Venous Blood Oxygen Saturation 95.8H, Venous Blood Base Excess -13.2L, Anion Gap 19H, Glomerular Filtration Rate > 60.0, Calcium Level 9.1, Aspartate Amino Transf (AST/SGOT) 11L , Alanine Aminotransferase (ALT/SGPT) 18, Alkaline Phosphatase 79, Total Bilirubin 0.7, Direct Bilirubin 0.2, Total Creatine Kinase 121, Total Protein 8.0, Albumin 4.4, Albumin/Globulin Ratio 1.22, Thyroid Stimulating Hormone (TSH ) 3.650, Salicylates Level 3.5L, Acetaminophen Level < 2.0L, Ethyl Alcohol Level < 0.003 01/29/17 13:40: 01/29/17 15:11: Urine Appearance CLEAR, Urine Color YELLOW, Urine pH 5.0, Urine Specific [place] 1.016, Urine Protein 1+H, Urine Glucose (UA) 1+H, Urine Ketones TRACEH, Urine Urobilinogen 0.2, Urine Bilirubin NEGATIVE, Urine Leukocyte Esterase NEGATIVE, Urine Blood 1+H, Urine Nitrite NEGATIVE, Urine WBC (Auto) 1, Urine RBC (Auto) 1, Urine Hyaline Casts (Auto) 1, Urine Bacteria (Auto) NEGATIVE, Urine Squamous Epithelial Cells 0, Urine Sperm (Auto) , Urine Amphetamines Screen NEGATIVE, Urine Benzodiazepines Screen NEGATIVE, Urine Opiates Screen NEGATIVE, Urine Methadone Screen NEGATIVE, Urine Barbiturates Screen NEGATIVE, Urine Phencyclidine Screen NEGATIVE, Urine Cocaine Metabolite Screen NEGATIVE, Urine Cannabinoids Screen NEGATIVE 01/29/17 15:23: Blood Gas Bicarbonate Standard 21.6L, Arterial Blood pH 7.445, Arterial Blood Partial Pressure CO2 28.0L, Arterial Blood Partial Pressure O2 129.6H, Arterial Blood Total CO2 19.7L, Arterial Blood HCO3 18.8L, Arterial Blood Base Excess - 3.5L, Arterial Blood Oxygen Saturation 98.9 CBC/BMP Laboratory Tests 01/29/17 13:35 Red Blood Count 5.45, Mean Corpuscular Volume 90.5, Mean Corpuscular Hemoglobin 30.5, Mean Corpuscular Hemoglobin Concent 33.7, Red Cell Distribution Width 13.0 , Neutrophils (%) (Auto) 82.1 H, Lymphocytes (%) (Auto) 12.7 L, Monocytes (%) ( Auto) 3.7, Eosinophils (%) (Auto) 0.2, Basophils (%) (Auto) 0.5, Neutrophils # ( Auto) 10.5 H, Lymphocytes # (Auto) 1.6, Monocytes # (Auto) 0.5, Eosinophils # ( Auto) 0.0, Basophils # (Auto) 0.1 Plan / VTE VTE Prophylaxis Ordered?: Yes Plan Plan Acute metabolic encephalopathy - possibly 2/2 post-ictal state, possibly 2/2 intoxication with illicit substance - Presented to ER because he was found unresponsive in his car - Had seizure episode in ER and was combative in his post ictal state - Labs indicate leukocytosis, AG and NAG metabolic acidosis, Elevated Cr - ABG with mixed etiology; respiratory alkalosis and metabolic acidosis - UDS, Ethanol, Acetaminophen and Salicylate levels negative - Synthetic marijuana and Levetiracetam level pending - CT head 01/29: Negative non-contrast head CT - EKG 01/29: NSR at 77; QTc of 424; ?ST segment elevation at V2, No T wave inversions - Will keep in ICU for monitoring - will trend cardiac enzymes - c/w Ativan 2mg IV q2hp for seizure / agitation - c/w IV fluid hydration - c/w Keppra - Discussed with poison control [facility] (Jessika at ) Leukocytosis - likely 2/2 reactive etiology, less likely infectious - unable to obtain ROS - UA without evidence of infection - will check CXR AG and NAG metabolic acidosis - Delta / Delta of < 1 - Will check lactic acid level - c/w IV fluid hydration Acute kidney injury - Cr on presentation of 1.43 - Baseline Cr of 0.81 - c/w IV fluid hydration DVT prophylaxis - Will start Heparin HERRERA,VIJESH MD Jan 29, 2017 16:46
[2017-01-29 19:24] LABS: ALBUMIN 3.9 GM/DL (3.2-5.2); ALBUMIN/GLOBULIN RATIO 1.18 (1.00-1.93); ALKALINE PHOSPHATASE 73 U/L (45-117); ALT/SGPT 17 U/L (12-78); ANION GAP 8 MEQ/L (8-16); AST/SGOT 15 U/L (15-37); BILIRUBIN,TOTAL 0.6 MG/DL (0.2-1.0); BLOOD UREA NITROGEN 9 MG/DL (7-18); CALCIUM LEVEL 8.2 MG/DL (8.5-10.1); CARBON DIOXIDE LEVEL 20 MEQ/L (21-32); CHLORIDE LEVEL 112 MEQ/L (98-107); CREATININE FOR GFR 0.89 MG/DL (0.70-1.30); GLOMERULAR FILTRATION RATE > 60.0 (>60); GLUCOSE, FASTING 104 MG/DL (70-105); POTASSIUM SERUM 4.1 MEQ/L (3.5-5.1); SODIUM LEVEL 140 MEQ/L (136-145); TOTAL PROTEIN 7.2 GM/DL (6.4-8.2)
[2017-01-29] MEDS ORDERED: ENOXAPARIN 40 MG/0.4 ML SYRINGE (J1650) SC SCH (21:00)
[2017-01-29 22:00] VITALS: BP 115/61
[2017-01-29] MEDS: HEPARIN SOD (PORCINE) 5000 UNITS/ML VIAL SQ SCH (22:44)
[2017-01-30] VITALS: BP 138/58
[2017-01-30] MEDS: NS 1,000 ML IV SCH ×3 (00:06→16:05)
--- NOTE | 2017-01-30 02:00 | REP ---
Clinical: Dyspnea. Infiltrate. . Comparison: 08/20/2016 . Findings: The mediastinum and cardiac silhouette are stable and within normal limits for portable technique. The lung osborne are clear without acute consolidation, effusion, or pneumothorax. Skeletal structures are intact. Impression: No acute cardiopulmonary process appreciated. Signed by Dakotah Ross MD 01/30/2017 01:51 A
[2017-01-30 04:00] VITALS: BP 96/53
[2017-01-30] MEDS: levETIRAcetam INJection 1,000 MG in D5W 100 ML IV SCH ×2 (04:08→15:31)
[2017-01-30 04:35] LABS: BASO % 0.2 % (0.0-1.0); EOS # 0.1 10^3/uL (0.0-0.50); EOS % 0.8 % (0.0-3.0); IMMATURE GRANULOCYTE % 0.4 % (0-0); LYMPH % 22.1 % (24.0-44.0); MEAN CORPUSCULAR HEMOGLOBIN 30.8 pg (27.0-33.0); MEAN CORPUSCULAR HGB CONC 34.8 g/dl (32.0-36.5); MEAN CORPUSCULAR VOLUME 88.5 fl (80.0-96.0); MONO # 0.6 10^3/uL (0.0-0.8); MONO % 6.4 % (0.0-5.0); NEUTROPHILS # 6.5 10^3/uL (1.8-7.7); NEUTROPHILS % 70.1 % (36.0-66.0); PLATELET COUNT, AUTOMATED 207 10^3/uL (150-450); WHITE BLOOD COUNT 9.2 10^3/uL (4.0-10.0)
[2017-01-30 04:53] LABS: ALBUMIN 3.7 GM/DL (3.2-5.2); ALBUMIN/GLOBULIN RATIO 1.16 (1.00-1.93); ALKALINE PHOSPHATASE 69 U/L (45-117); ALT/SGPT 15 U/L (12-78); ANION GAP 7 MEQ/L (8-16); AST/SGOT 16 U/L (15-37); BLOOD UREA NITROGEN 9 MG/DL (7-18); CALCIUM LEVEL 8.3 MG/DL (8.5-10.1); CARBON DIOXIDE LEVEL 22 MEQ/L (21-32); CHLORIDE LEVEL 112 MEQ/L (98-107); CREATININE FOR GFR 0.88 MG/DL (0.70-1.30); GLOMERULAR FILTRATION RATE > 60.0 (>60); GLUCOSE, FASTING 96 MG/DL (70-105); MAGNESIUM LEVEL 2.4 MG/DL (1.8-2.4); POTASSIUM SERUM 3.5 MEQ/L (3.5-5.1); SODIUM LEVEL 141 MEQ/L (136-145); TOTAL PROTEIN 6.9 GM/DL (6.4-8.2)
[2017-01-30] MEDS: HEPARIN SOD (PORCINE) 5000 UNITS/ML VIAL SQ SCH ×3 (06:19→21:13)
[2017-01-30 07:37] VITALS: BP 113/59
--- NOTE | 2017-01-30 08:17 | ECGEPIP ---
Stationary ECG Study [facility] - ED Test Date: 2017-01-29 Pat Name: JESSICA SIMS Department: Room: - Gender: M Commissioning Specialist: LISBET : 1995 Requested By: KRISTEN TAYLOR Order Number: [id number] Reading MD: Karlos Gross Measurements Intervals Naylor Rate: 77 P: 85 UT: 124 QRS: 69 QRSD: 102 T: 5 QT: 392 QTc: 446 Interpretive Statements SINUS RHYTHM WITH SINUS ARRHYTHMIA POSSIBLE LEFT ATRIAL ENLARGEMENT INC. RBBB NSTTW ABNORMALITIES Electronically Signed On 01-30-2017 8:17:08 EDT by Karlos Gross
[2017-01-30 10:30] VITALS: BP 138/71
[2017-01-30 14:00] VITALS: BP 111/55
--- NOTE | 2017-01-30 20:00 | IPN ---
DATE: 01/30/2017 SUBJECTIVE: The patient is seen and examined in the room today. Per patient, the patient had a history of using synthetic marijuana and bath salts. The patient has a history of seizure occurring in August 2016 from the recreational drug use. This time, the patient denies any usage of any illicit drugs. Yesterday, the patient was parking outside of [employer], his family member went into the [employer] to purchase a meal, and the patient felt he had a seizure when he was in the car alone. The next thing he remembered was he was waking up in the hospital room. Denies any tongue biting. He is not sure whether he has any bowel or bladder incontinence. Per record, the patient was combative during the postictal state. Shortly after the last seizure in August of 2016, the patient was put on a short course of Keppra, but the medication was not continued. No overnight events reported on telemetry. OBJECTIVE: VITAL SIGNS: Temperature 99.3, pulse 63, respiration rate is 18, blood pressure is 113/59, pulse oximetry is 96% in room air. GENERAL: No sign of acute distress. Alert and oriented times three. HEENT: Normocephalic, atraumatic. Extraocular motor grossly intact. CARDIOVASCULAR: Positive S1, S2, regular rate. LUNGS: Clear to auscultation bilaterally. ABDOMEN: Soft, nontender, nondistended. Bowel sounds present. No rebound, no guarding. EXTREMITIES: No edema, no cyanosis. LABORATORY DATA: WBC 9.2, hemoglobin 14.7, hematocrit of 42.2, platelet count is 207. Sodium is 141, potassium 3.5, chloride is 112, carbon dioxide 22, BUN 9, creatinine 0.88, GFR greater than 60, fasting glucose 96, calcium is 8.3, magnesium 2.4, total bilirubin is 1, AST 16, ALT 15, alkaline phosphatase 69, total CK is 324. Troponin I is less than 0.02. Total protein 6.9, albumin 3.7. ASSESSMENT AND PLAN: 1. Acute seizures. Etiology unknown at this moment. The patient will have an EEG today. The patient has a history of illicit drug abuse in the past, and the patient denies usage prior to the events. Urine toxicology is still pending. The patient is currently on Keppra. The patient will be on seizure precautions. The patient will be downgraded to medical-surgical with telemetry. 2. Leukocytosis. Most likely reactive. The patient was not placed on any antibiotics. No infectious process is suspected. The patient's white count returned to normal range today. 3. Metabolic acidosis. The patient has been on intravenous (IV) hydration. Improving. 4. History of polysubstance abuse. Per record, the patient had a history of abuse of synthetic marijuana and bath salts. Urine toxicology is pending. 5. Deep vein thrombosis (DVT) prophylaxis. Heparin.
[2017-01-30 22:00] VITALS: BP 118/64
--- NOTE | 2017-01-30 22:43 | ECGEPIP ---
Stationary ECG Study [facility] Test Date: 2017-01-30 Pat Name: JESSICA SIMS Department: Room: [place] [address] Gender: M Boom Operator: RYAN : 1995 Requested By: SHO HERRERA Order Number: [id number] Reading MD: Sanjay Sparks Measurements Intervals [place] Rate: 51 P: 66 [place]: 115 QRS: 73 QRSD: 101 T: 39 QT: 433 QTc: 399 Interpretive Statements SINUS BRADYCARDIA WITH SHORT [place] INTERVAL RIGHT VENTRICULAR CONDUCTION DELAY Electronically Signed On 01-30-2017 22:42:46 EDT by Sanjay Sparks
[2017-01-31] MEDS: NS 1,000 ML IV SCH ×2 (03:38→09:59)
[2017-01-31] MEDS: levETIRAcetam INJection 1,000 MG in D5W 100 ML IV SCH (03:38)
[2017-01-31] MEDS: HEPARIN SOD (PORCINE) 5000 UNITS/ML VIAL SQ SCH (05:22)
[2017-01-31 06:00] VITALS: BP 129/70
[2017-01-31 06:06] LABS: BASO % 0.4 % (0.0-1.0); EOS # 0.1 10^3/uL (0.0-0.50); EOS % 1.7 % (0.0-3.0); IMMATURE GRANULOCYTE % 0.3 % (0-0); LYMPH # 2.9 10^3/uL (1.5-6.5); MEAN CORPUSCULAR HEMOGLOBIN 30.3 pg (27.0-33.0); MEAN CORPUSCULAR HGB CONC 34.5 g/dl (32.0-36.5); MEAN CORPUSCULAR VOLUME 87.9 fl (80.0-96.0); MONO # 0.5 10^3/uL (0.0-0.8); MONO % 6.8 % (0.0-5.0); NEUTROPHILS % 52.8 % (36.0-66.0); PLATELET COUNT, AUTOMATED 194 10^3/uL (150-450); RED CELL DISTRIBUTION WIDTH 12.7 % (11.5-14.5); WHITE BLOOD COUNT 7.7 10^3/uL (4.0-10.0)
[2017-01-31 06:43] LABS: ALBUMIN 3.4 GM/DL (3.2-5.2); ALBUMIN/GLOBULIN RATIO 1.26 (1.00-1.93); ALKALINE PHOSPHATASE 62 U/L (45-117); ALT/SGPT 13 U/L (12-78); ANION GAP 9 MEQ/L (8-16); AST/SGOT 16 U/L (15-37); BILIRUBIN,TOTAL 1.4 MG/DL (0.2-1.0); BLOOD UREA NITROGEN 7 MG/DL (7-18); CALCIUM LEVEL 8.1 MG/DL (8.5-10.1); CARBON DIOXIDE LEVEL 23 MEQ/L (21-32); CHLORIDE LEVEL 110 MEQ/L (98-107); GLOMERULAR FILTRATION RATE > 60.0 (>60); GLUCOSE, FASTING 76 MG/DL (70-105); POTASSIUM SERUM 3.3 MEQ/L (3.5-5.1); SODIUM LEVEL 142 MEQ/L (136-145); TOTAL PROTEIN 6.1 GM/DL (6.4-8.2)
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
[2017-01-31 08:30] VITALS: BP 112/59
[2017-01-31] MEDS ORDERED: KEPP10002 PO (10:43)
--- NOTE | 2017-01-31 18:41 | DSES ---
DATE OF ADMISSION: 01/29/2017 DATE OF DISCHARGE: 01/31/2017 DISCHARGE DIAGNOSIS: Substance-induced seizure. SECONDARY DIAGNOSES: 1. Polysubstance abuse. 2. Metabolic acidosis. 3. Medical noncompliance. HOSPITAL COURSE: The patient is a 21-year-old man who was first admitted in February 2015. At the time he had a substance-induced seizure. He was most recently admitted in August of 2015. At the time he had a seizure following synthetic marijuana use. He today is able to tell me that he once again had this most recent seizure related to synthetic marijuana use. Patient tells me that he did not followup with his primary care physician or with neurology following his last discharge and that he actually during his last hospitalization elected to leave the hospital against medical advice. SUBJECTIVE: This morning the patient tells me that he feels great. He has had no further seizure activity. Feels completely back to normal and would like to go home. He has no specific complaints at this time and expresses a strong desire to involve himself with Narcotics Anonymous and to avoid all narcotics in the future as well as all further substances. OBJECTIVE: VITAL SIGNS: Temperature 98.6, pulse 72, respiratory rate 16, blood pressure (BP ) 112/59, oxygen saturation 99% on room air. GENERAL: He is a disheveled, young man sitting up in bed. He is awake, alert, oriented times three. He does not appear to be in any acute distress. HEENT: Cranial nerves II-XII are grossly intact. He has moist mucous membranes. CARDIOVASCULAR: S1, S2, regular. RESPIRATORY: Clear. ABDOMEN: Benign. EXTREMITIES: No clubbing, cyanosis, or edema. NEUROLOGIC: Nonfocal. LABORATORY STUDIES: WBC 7.7, hemoglobin 14, platelet count 194. Chemistry panel: Sodium 142, potassium 3.3, chloride 110, bicarbonate 23, BUN 7, creatinine 0.8. Toxicology thus far has all been negative, but he does admit to synthetic marijuana use. IMAGING: He had a CT scan of his head, which was a negative noncontrast study. He did have a chest x-ray that revealed no acute cardiopulmonary process. He did have an EEG that was normal in the awake, drowsy state. 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 1. Seizure. This is his third seizure. All have been related to illicit drug abuse. He denies any intention to use further drugs in the future. He has been started on Keppra 1 gram by mouth twice a day, which was started actually during his last hospitalization, but he was never compliant with taking. Compliance was strictly reminded to him. All of his questions were answered to his satisfaction. He is aware of the risk of if he is noncompliant with his medication and does not followup with his medical providers or once again returns to using any illicit substances. At this time he does appear to be medically stable. We do seem to have a clear etiology for all of his seizure episodes. He previously had an MRI, which was negative. 2. Leukocytosis, likely reactive, resolved. 3. Metabolic acidosis, resolved. 4. History of polysubstance abuse. As outlined above, he has advised me he going to enroll in Narcotics Anonymous. 5. Medication noncompliance. Strict adherence has been advised. He appears very receptive to this. His family have all been notified. 6. Deep vein thrombosis (DVT) prophylaxis. He has been on heparin. DISPOSITION: The patient is to followup with neurology 02/14/[address] Birch office is his primary care provider who will call him tomorrow informing him if he has able to be seen in that clinic any further. 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 DIET: As prior to admission. He is to avoid all substances. DISCHARGE MEDICATIONS: Keppra 1 gram by mouth twice a day Greater than 30 minutes spent organizing disposition and counseling the patient, essentially bedside. REENA
[2017-02-02 00:07] LABS: ETHYLENE GLYCOL LABCORP None Detected (None detected)
== END 2017-01-31 15:02 | disposition home or self-care (01) | DRG 776 ==
LOC: EDBD 13:20 → M ED 13:20 → M ED INP 16:23 → M ICU 21:44 → M MSPAV 01-30 10:21
PROVIDERS: ADMIT Internal Medicine; ATTEND Internal Medicine
DX: F12.10 Cannabis abuse, uncomplicated (principal); N17.9 Acute kidney failure, unspecified; E87.2 Acidosis; Z91.19 Patient's noncompliance with other medical treatment and regimen; D72.829 Elevated white blood cell count, unspecified; Z91.018 Allergy to other foods; F15.10 Other stimulant abuse, uncomplicated; G40.909 Epilepsy, unspecified, not intractable, without status epilepticus

== ENCOUNTER 2018-09-27 15:36 | Emergency (ER) | payer OTHER ==
[2018-09-27] MEDS ORDERED: levETIRAcetam INJection 1,000 MG in D5W 100 ML IV ONE (15:45)
[2018-09-27] MEDS ORDERED: NS 1,000 ML IV ONE (15:45)
[2018-09-27] MEDS ORDERED: LORazepam 2 MG/ML VIAL (J2060) IV STA (15:48)
[2018-09-27] MEDS ORDERED: LORazepam 2 MG/ML VIAL (J2060) As Ordered ONE (15:49)
[2018-09-27 16:29] LABS: BASO # 0.1 10^3/uL (0.0-0.2); BASO % 0.6 % (0.0-1.0); EOS # 0.1 10^3/uL (0.0-0.50); EOS % 1.3 % (0.0-3.0); HEMATOCRIT 52.1 % (42.0-52.0); LYMPH # 1.2 10^3/uL (1.5-6.5); MEAN CORPUSCULAR HEMOGLOBIN 30.9 pg (27.0-33.0); MEAN CORPUSCULAR HGB CONC 33.2 g/dl (32.0-36.5); MEAN CORPUSCULAR VOLUME 93.2 fl (80.0-96.0); MONO # 0.6 10^3/uL (0.0-0.8); MONO % 6.4 % (0.0-5.0); NEUTROPHILS % 76.7 % (36.0-66.0); RED BLOOD COUNT 5.59 10^6/uL (4.30-6.10)
--- NOTE | 2018-09-27 16:33 | REP ---
CT Head without contrast HISTORY: Seizure COMPARISON: 01/29/2017 Examination is limited secondary to motion. There is no intraparenchymal hemorrhage, acute infarct, mass or midline shift. The ventricular system is normal in appearance. There is no extra cerebral collection. There is no fracture. The visualized sinuses are clear. IMPRESSION: There is no intracranial lesion. Electronically Signed by Yeyo Villeda MD 09/27/2018 04:24 P
[2018-09-27 16:36] LABS: HEMOGLOBIN 17.3 g/dl (13.5-17.5); PLATELET COUNT, AUTOMATED 243 10^3/uL (150-450); WHITE BLOOD COUNT 9.1 10^3/uL (4.0-10.0)
[2018-09-27 17:07] LABS: ACETAMINOPHEN LEVEL < 2.0 UG/ML (10.0-30.0); ALBUMIN 4.4 GM/DL (3.2-5.2); ALT/SGPT 49 U/L (12-78); BILIRUBIN,DIRECT 0.3 MG/DL (0.0-0.2); BILIRUBIN,TOTAL 1.2 MG/DL (0.2-1.0); BLOOD UREA NITROGEN 16 MG/DL (7-18); CARBON DIOXIDE LEVEL 15 MEQ/L (21-32); CHLORIDE LEVEL 105 MEQ/L (98-107); CK-MB VALUE MASS < 1.0 NG/ML (<3.6); CPK CREATINE PHOSPHOKINASE 168 U/L (39-308); CREATININE FOR GFR 1.25 MG/DL (0.70-1.30); ETHYL ALCOHOL (ETHANOL) < 0.003 % (0.000-0.010); GLOMERULAR FILTRATION RATE > 60.0 (>60); GLUCOSE, FASTING 107 MG/DL (70-100); POTASSIUM SERUM 4.2 MEQ/L (3.5-5.1); SALICYLATE LEVEL < 1.7 MG/DL (5.0-30.0); SODIUM LEVEL 137 MEQ/L (136-145); TOTAL PROTEIN 8.5 GM/DL (6.4-8.2); TROPONIN I < 0.02 NG/ML (< 0.10)
[2018-09-27] MEDS ORDERED: KEPP10002 PO ×2 (17:32→17:34)
[2018-09-27 19:00] VITALS: BP 110/65
== END 2018-09-27 19:43 | disposition home or self-care (01) ==
LOC: EDBD 15:36 → M ED 15:36
DX: G40.909 Epilepsy, unspecified, not intractable, without status epilepticus (principal); Z91.018 Allergy to other foods
CPT/HCPCS: 70450; 80048; 80076; 82550; 82553; 83605; 84443; 85025; 93041; 94760; 96374; 96375; 99284; G0480; J1953; J2060